=== PATIENT | female | born 1975 | race African-American/Black ===

== ENCOUNTER 2020-01-16 15:34 | Emergency (ER) | payer OTHER ==
[~2020-01-16] VITALS: Ht 152.4 cm; Wt 90.7 kg
[2020-01-16 15:55] VITALS: TEMP 99.6
[2020-01-16 17:04] LABS: PLATELET COUNT 260 K/uL (152-353)
[2020-01-16 17:09] LABS: POTASSIUM 3.7 mmol/L (3.6-5.2)
[2020-01-16 18:40] VITALS: BP 132/72
== END 2020-01-16 18:35 | disposition home or self-care (01) ==
LOC: ED 15:34
PROVIDERS: Family Medicine
DX: J06.9 Acute upper respiratory infection, unspecified (principal); R11.0 Nausea; J18.0 Bronchopneumonia, unspecified organism
CPT/HCPCS: 80053; 81000; 82728; 85027; 85379; 87502; 87651; 96374; 99284; J2405